=== PATIENT | female | born 1965 | race Two or more races ===

== ENCOUNTER → 2017-03-25 | Day surgery (SDC) | payer OTHER ==
[~2017-03-25] MED LIST: INHALER INH; PAIN MEDICATION PO
--- NOTE | ~2017-03-25 | OR ---
Unit #: [id number] #: [id number] Patient: MELCHOR JACKSON [id number] [address] [place], [place] [address] [id number] O MR#: [id number] NAME: MELCHOR JACKSON ROOM: Date of Procedure: 03/25/2017 Admission Date: 03/25/2017 Surgeon: Chris Clifford M.D. : 1965 Attending Physician: Chris Clifford M.D. Referring Physician: Chris Clifford M.D. Primary Care Physician: [facility] OPERATIVE REPORT PROCEDURE PERFORMED Colonoscopy with snare polypectomy. INDICATIONS FOR PROCEDURE The patient is average risk for colorectal cancer, also chronic constipation undergoing evaluation with colonoscopy. MEDICATIONS Monitored anesthesia. POSTOPERATIVE FINDINGS 1. Colonoscopy to the cecum. Prep was adequate physiology. 2. Small 5-mm polyp, snared and sent for histopathology, in transverse colon. 3. Small internal hemorrhoids. PLAN Follow up on the pathology report if adenomatous. Repeat colonoscopy in 5 years. Stool softeners and fiber supplements. DESCRIPTION OF PROCEDURE The patient was explained of the procedure, risks, and benefits along with the risks and benefits of anesthesia. He was brought to the endoscopy room. Propofol anesthesia was given. Rectal exam was done which was normal. Colonoscope was lubricated, passed up the rectum, advanced under direct vision all the way to the cecum. Cecum was identified by ileocecal valve and appendiceal orifice. I then started to pull the scope out carefully looking. Small polyp in the transverse colon was snared and sent for histopathology. Rest of the exam was normal. I retroflexed in the rectum, small hemorrhoids seen. The scope was gently pulled out. She tolerated it well. Dictated by... Lorie Murphy/sarah TD: 03/26/2017 13:53 JOB #: [id number] CC: Chacorta Abrams A.P.R.N. Unit #: [id number] #: [id number] Patient: MELCHOR JACKSON OPERATIVE REPORT Page 1 of 1 X Chris Clifford MD PROCEDURE OPERATIVE NOTE
== END | disposition home or self-care (01) ==
LOC: COPS 12:07
DX: K63.5 Polyp of colon (principal); K64.8 Other hemorrhoids; K59.09 Other constipation; J45.909 Unspecified asthma, uncomplicated; Z90.711 Acquired absence of uterus with remaining cervical stump; Z79.899 Other long term (current) drug therapy
CPT/HCPCS: 88305